=== PATIENT | male | born 1995 | race African-American/Black ===

== ENCOUNTER 2019-11-24 02:53 | Emergency (ER) | payer SELFPAY ==
[~2019-11-24] VITALS: Ht 188 cm; Wt 75.0 kg
[2019-11-24 03:10] LABS: BASOPHILS % (AUTO) 0.4 % (0.0-2.0); EOSINOPHILS % (AUTO) 0.3 % (1.0-6.0); HEMATOCRIT 42.7 % (41-53); HEMOGLOBIN 14.1 g/dL (13.5-17.5); LYMPHOCYTES % (AUTO) 13.7 % (22.0-44.0); MEAN CORPUSCULAR HEMOGLOBIN 28.5 pg (26.0-34.0); MEAN CORPUSCULAR HGB CONC 33.1 G/dL (31.0-37.0); MEAN CORPUSCULAR VOLUME 86 fL (80-100); MONOCYTES # (AUTO) 0.8 K/uL (0.1-1.0); MONOCYTES % (AUTO) 5.1 % (2.0-9.0); NEUTROPHILS # (AUTO) 11.8 K/uL (1.8-7.7); NEUTROPHILS % (AUTO) 80.5 % (40.0-70.0); PLATELET COUNT (AUTO) 281 K/uL (150-450); RED BLOOD CELL COUNT(AUTO) 4.96 MIL/uL (4.50-5.90); RED CELL DISTRIBUTION WIDTH 12.9 % (11.5-14.5)
[2019-11-24 03:20] LABS: ANION GAP 10 mmol/L (8-16); CALCIUM, TOTAL 9.2 mg/dL (8.8-10.5); CARBON DIOXIDE 29 mmol/L (22-29); CHLORIDE 102 mmol/L (98-107); GLOMERULAR FILTR. RATE CALC > 60 mL/min (>60); GLUCOSE,RANDOM 93 mg/dL (70-110); POTASSIUM 3.9 mmol/L (3.5-5.1); SODIUM SERUM 141 mmol/L (136-145); UREA NITROGEN, BLOOD 22 mg/dL (7-18)
[2019-11-24 03:26] LABS: ALANINE AMINOTRANSFERASE 27 U/L (12-78); ALBUMIN 4.8 g/dL (3.4-5.0); ALKALINE PHOSPHATASE 96 U/L (46-116); ASPARTATE AMINOTRANSFERASE 37 U/L (15-37); BILIRUBIN,TOTAL 0.5 mg/dL (0.1-1.0)
[2019-11-24] MEDS ORDERED: LORazepam 1 MG TABLET PO ONE (03:30)
[2019-11-24 04:25] LABS: AMPHET/METH SCREEN,URINE NEGATIVE (NEGATIVE); BARBITURATE SCREEN, URINE NEGATIVE (NEGATIVE); BENZODIAZEPINES SCREEN,URINE NEGATIVE (NEGATIVE); CANNABINOID SCREEN,URINE POSITIVE (NEGATIVE); COCAINE SCREEN,URINE NEGATIVE (NEGATIVE); METHADONE SCREEN, URINE NEGATIVE (NEGATIVE); OPIATE SCREEN,URINE NEGATIVE (NEGATIVE)
[2019-11-24 04:58] LABS: PHENCYCLIDINE SCREEN,URINE NEGATIVE (NEGATIVE)
[2019-11-24 05:38] VITALS: BP 111/78
== END 2019-11-24 05:49 | disposition home or self-care (01) ==
LOC: EMS 02:54
DX: F25.9 Schizoaffective disorder, unspecified (principal); F17.210 Nicotine dependence, cigarettes, uncomplicated; F12.90 Cannabis use, unspecified, uncomplicated
CPT/HCPCS: 36415; 71045; 80053; 80307; 85025; 99285; G0480

== ENCOUNTER 2019-12-30 11:21 | Inpatient (IN) | payer MEDICAID ==
[~2019-12-30] VITALS: Ht 185.4 cm; Wt 69.0 kg
[2019-12-30 12:04] LABS: BASOPHILS % (AUTO) 0.5 % (0.0-2.0); EOSINOPHILS % (AUTO) 0.2 % (1.0-6.0); HEMOGLOBIN 13.6 g/dL (13.5-17.5); LYMPHOCYTES # (AUTO) 1.6 K/uL (1.0-4.8); LYMPHOCYTES % (AUTO) 15.2 % (22.0-44.0); MEAN CORPUSCULAR HEMOGLOBIN 29.6 pg (26.0-34.0); MEAN CORPUSCULAR VOLUME 87 fL (80-100); MONOCYTES # (AUTO) 0.8 K/uL (0.1-1.0); MONOCYTES % (AUTO) 7.2 % (2.0-9.0); NEUTROPHILS # (AUTO) 8.3 K/uL (1.8-7.7); NEUTROPHILS % (AUTO) 76.9 % (40.0-70.0); PLATELET COUNT (AUTO) 292 K/uL (150-450)
[2019-12-30 12:22] LABS: ALANINE AMINOTRANSFERASE 76 U/L (12-78); ALBUMIN 4.4 g/dL (3.4-5.0); ALKALINE PHOSPHATASE 169 U/L (46-116); ASPARTATE AMINOTRANSFERASE 43 U/L (15-37); BILIRUBIN,TOTAL 0.7 mg/dL (0.1-1.0); CARBON DIOXIDE 27 mmol/L (22-29); CREATININE 0.99 mg/dL (0.60-1.30); GLOMERULAR FILTR. RATE CALC > 60 mL/min (>60); GLUCOSE,RANDOM 93 mg/dL (70-110); TOTAL PROTEIN, SERUM 8.3 g/dL (6.4-8.2); UREA NITROGEN, BLOOD 17 mg/dL (7-18)
[2019-12-30 12:31] LABS: AMPHET/METH SCREEN,URINE NEGATIVE (NEGATIVE); BARBITURATE SCREEN, URINE NEGATIVE (NEGATIVE); BENZODIAZEPINES SCREEN,URINE NEGATIVE (NEGATIVE); CANNABINOID SCREEN,URINE POSITIVE (NEGATIVE); COCAINE SCREEN,URINE NEGATIVE (NEGATIVE); METHADONE SCREEN, URINE NEGATIVE (NEGATIVE); OPIATE SCREEN,URINE NEGATIVE (NEGATIVE)
[2019-12-30 12:34] LABS: PHENCYCLIDINE SCREEN,URINE NEGATIVE (NEGATIVE)
[2019-12-30 12:50] LABS: ANION GAP 10 mmol/L (8-16); CHLORIDE 106 mmol/L (98-107); POTASSIUM 4.6 mmol/L (3.5-5.1); SODIUM SERUM 143 mmol/L (136-145)
[2019-12-30] MEDS ORDERED: HALOPERIDOL 5 MG TABLET PO ONE (13:00)
[2019-12-30] MEDS ORDERED: LORazepam 2 MG TABLET PO ONE (13:00)
[2019-12-30 14:44] VITALS: BP 131/67
[2019-12-30 16:41] VITALS: BP 126/66
[2019-12-31 04:22] VITALS: BP 151/86
[2019-12-31 08:00] VITALS: BP 143/79
[2019-12-31] MEDS ORDERED: OMEPRAZOLE 20 MG CAPSULE PO PRN (08:45)
[2019-12-31] MEDS ORDERED: MAG HYDROX/AL HYDROX/SIMETH ES 30 ML SUSPENSION UDCUP PO PRN (08:45)
[2019-12-31] MEDS ORDERED: MAGNESIUM HYDROXIDE SUSPENSION 30 ML UDCUP PO PRN (08:45)
[2019-12-31] MEDS ORDERED: ALBUTEROL SULFATE HFA 90 MCG/PUFF 8 GM INHALER IH PRN (08:45)
[2019-12-31] MEDS ORDERED: BACITRACIN 28.4 GM OINTMENT TP PRN (08:45)
[2019-12-31] MEDS ORDERED: DOCUSATE SODIUM 100 MG CAPSULE PO PRN (08:45)
[2019-12-31] MEDS ORDERED: BENZOCAINE/MENTHOL LOZENGE MM PRN (08:45)
[2019-12-31] MEDS ORDERED: PETROLATUM,WHITE 28 GM JELLY TP PRN (08:45)
[2019-12-31] MEDS ORDERED: LOPERAMIDE HCL 2 MG CAPSULE PO PRN (08:45)
[2019-12-31] MEDS ORDERED: CloNIDine HCL 0.1 MG TABLET PO PRN (08:45)
[2019-12-31] MEDS ORDERED: ONDANSETRON HCL 4 MG TABLET PO PRN (08:45)
[2019-12-31] MEDS: MULTIVITAMINS WITH MINERALS, THERAPEUTIC TABLET PO SCH (15:08)
[2019-12-31] MEDS: HALOPERIDOL 5 MG TABLET PO PRN (15:53)
[2019-12-31] MEDS: LORazepam 2 MG TABLET PO PRN (15:53)
[2019-12-31 16:00] VITALS: BP 136/77
[2020-01-01 03:37] VITALS: BP 129/78
[2020-01-01] MEDS: DIVALPROEX SODIUM 500 MG DR TABLET PO SCH ×2 (08:22→16:09)
[2020-01-01] MEDS: RisperiDONE 1 MG TABLET PO SCH ×2 (08:22→16:09)
[2020-01-01 09:45] VITALS: BP 127/67
[2020-01-01] MEDS: IBUPROFEN 600 MG TABLET PO PRN (09:46)
[2020-01-01] MEDS: MULTIVITAMINS WITH MINERALS, THERAPEUTIC TABLET PO SCH (09:46)
[2020-01-01 09:55] VITALS: BP 127/67
[2020-01-01 16:00] VITALS: BP 156/90
[2020-01-01 19:58] VITALS: BP 121/68
[2020-01-01] MEDS: ACETAMINOPHEN 325 MG TABLET PO PRN (19:58)
[2020-01-01] MEDS: ZOLPIDEM TARTRATE 10 MG TABLET PO PRN (22:53)
[2020-01-02 04:30] VITALS: BP 124/79
[2020-01-02] MEDS: ACETAMINOPHEN 325 MG TABLET PO PRN ×2 (04:33→20:23)
[2020-01-02] MEDS: LORazepam 2 MG TABLET PO PRN (04:34)
[2020-01-02 08:28] VITALS: BP 119/86
[2020-01-02] MEDS: RisperiDONE 1 MG TABLET PO SCH ×2 (09:14→16:01)
[2020-01-02] MEDS: MULTIVITAMINS WITH MINERALS, THERAPEUTIC TABLET PO SCH (09:14)
[2020-01-02] MEDS: DIVALPROEX SODIUM 500 MG DR TABLET PO SCH ×2 (09:14→16:01)
[2020-01-02 16:00] VITALS: BP 137/75
[2020-01-02 20:23] VITALS: BP 134/74
[2020-01-03 01:55] VITALS: BP 109/75
[2020-01-03] MEDS: LORazepam 2 MG TABLET PO PRN (01:59)
[2020-01-03] MEDS: IBUPROFEN 600 MG TABLET PO PRN ×3 (02:00→19:53)
[2020-01-03] MEDS: DIVALPROEX SODIUM 500 MG DR TABLET PO SCH ×2 (08:10→16:16)
[2020-01-03] MEDS: MULTIVITAMINS WITH MINERALS, THERAPEUTIC TABLET PO SCH (08:10)
[2020-01-03] MEDS: RisperiDONE 1 MG TABLET PO SCH ×2 (08:10→16:16)
[2020-01-03 09:33] VITALS: BP 124/68
[2020-01-03 12:09] VITALS: BP 118/72
[2020-01-03 16:36] VITALS: BP 122/71
[2020-01-03] MEDS: ACETAMINOPHEN 325 MG TABLET PO PRN (17:13)
[2020-01-03 19:53] VITALS: BP 120/80
[2020-01-04 02:25] VITALS: BP 125/81
[2020-01-04] MEDS: IBUPROFEN 600 MG TABLET PO PRN (02:28)
[2020-01-04] MEDS: ACETAMINOPHEN 325 MG TABLET PO PRN (07:00)
[2020-01-04] MEDS: RisperiDONE 1 MG TABLET PO SCH ×2 (08:23→16:39)
[2020-01-04] MEDS: MULTIVITAMINS WITH MINERALS, THERAPEUTIC TABLET PO SCH (08:23)
[2020-01-04] MEDS: DIVALPROEX SODIUM 500 MG DR TABLET PO SCH ×2 (08:24→16:39)
[2020-01-04 09:37] VITALS: BP 132/69
[2020-01-04 16:00] VITALS: BP 142/87
[2020-01-04] MEDS: ZOLPIDEM TARTRATE 10 MG TABLET PO PRN (21:40)
[2020-01-05] VITALS: BP 135/79
[2020-01-05] MEDS: ACETAMINOPHEN 325 MG TABLET PO PRN (02:06)
[2020-01-05] MEDS: LORazepam 2 MG TABLET PO PRN ×2 (04:24→14:23)
[2020-01-05 08:00] VITALS: BP 150/87
[2020-01-05] MEDS: RisperiDONE 1 MG TABLET PO SCH ×2 (08:09→16:11)
[2020-01-05] MEDS: DIVALPROEX SODIUM 500 MG DR TABLET PO SCH ×2 (08:10→16:11)
[2020-01-05] MEDS: MULTIVITAMINS WITH MINERALS, THERAPEUTIC TABLET PO SCH (08:10)
[2020-01-05 16:00] VITALS: BP 135/91
[2020-01-05] MEDS: ZOLPIDEM TARTRATE 10 MG TABLET PO PRN (20:04)
[2020-01-06 01:25] VITALS: BP 143/82
[2020-01-06] MEDS: IBUPROFEN 600 MG TABLET PO PRN ×2 (01:30→16:22)
[2020-01-06] MEDS: LORazepam 2 MG TABLET PO PRN (01:30)
[2020-01-06] MEDS: MULTIVITAMINS WITH MINERALS, THERAPEUTIC TABLET PO SCH (08:12)
[2020-01-06] MEDS: DIVALPROEX SODIUM 500 MG DR TABLET PO SCH ×2 (08:12→16:19)
[2020-01-06] MEDS: RisperiDONE 1 MG TABLET PO SCH ×2 (08:12→16:19)
[2020-01-06 08:39] VITALS: BP 134/76
[2020-01-06 09:22] VITALS: BP 134/76
[2020-01-06] MEDS: ACETAMINOPHEN 325 MG TABLET PO PRN (13:38)
[2020-01-06 16:10] VITALS: BP 120/70
[2020-01-06 16:29] VITALS: BP 123/66
[2020-01-06] MEDS: ZOLPIDEM TARTRATE 10 MG TABLET PO PRN (21:51)
[2020-01-07 02:05] VITALS: BP 124/70
[2020-01-07 08:00] VITALS: BP 135/77
[2020-01-07] MEDS: RisperiDONE 3 MG TABLET PO SCH ×2 (08:08→16:10)
[2020-01-07] MEDS: HALOPERIDOL 5 MG TABLET PO PRN (08:09)
[2020-01-07] MEDS: MULTIVITAMINS WITH MINERALS, THERAPEUTIC TABLET PO SCH (08:09)
[2020-01-07] MEDS: DIVALPROEX SODIUM 500 MG DR TABLET PO SCH ×2 (08:09→16:10)
[2020-01-07 17:16] VITALS: BP 135/75
[2020-01-07] MEDS: ZOLPIDEM TARTRATE 10 MG TABLET PO PRN (22:29)
[2020-01-08 04:00] VITALS: BP 121/75
[2020-01-08 08:00] VITALS: BP 146/88
[2020-01-08] MEDS: HALOPERIDOL 5 MG TABLET PO PRN (09:35)
[2020-01-08] MEDS: RisperiDONE 3 MG TABLET PO SCH (09:35)
[2020-01-08] MEDS: DIVALPROEX SODIUM 500 MG DR TABLET PO SCH (09:35)
[2020-01-08] MEDS: MULTIVITAMINS WITH MINERALS, THERAPEUTIC TABLET PO SCH (09:35)
[2020-01-08] MEDS ORDERED: MULT-723 PO (11:32)
[2020-01-08] MEDS ORDERED: RISP3TAB14 PO (11:34)
[2020-01-08] MEDS ORDERED: DIVA-112 PO (11:34)
== END 2020-01-08 13:25 | disposition home or self-care (01) | DRG 885 ==
LOC: EMS 11:24 → 3EI 15:49
PROVIDERS: ADMIT Psychiatry & Neurology Psychiatry; ATTEND Psychiatry & Neurology Psychiatry
DX: F25.9 Schizoaffective disorder, unspecified (principal); R45.851 Suicidal ideations; F17.210 Nicotine dependence, cigarettes, uncomplicated; F12.90 Cannabis use, unspecified, uncomplicated; F41.9 Anxiety disorder, unspecified; K59.00 Constipation, unspecified; F10.10 Alcohol abuse, uncomplicated; S42.001A Fracture of unspecified part of right clavicle, initial encounter for closed fracture; V00.131A Fall from skateboard, initial encounter; Y93.51 Activity, roller skating (inline) and skateboarding
CPT/HCPCS: G0480